=== PATIENT | male | born 2005 | race Caucasian/White ===

== ENCOUNTER → 2024-08-27 | Outpatient (CLI) | payer OTHER, SELFPAY ==
[2024-08-27 17:58] LABS: Erythrocyte Sedimentation Rate 5 mm/hr (0-20)
[2024-08-27 18:33] LABS: CRP 5.23 mg/L (0.0-3.0); Free T3 3.3 pg/mL (2.18-3.98)
[2024-08-27 18:36] LABS: Lipase 31 U/L (73-393)
[2024-09-02 11:07] LABS: ACCA 18 units (0-90); ALCA 64 units (0-60); AMCA 6 units (0-100); Cytoplasmic Ab (C-ANCA) <1:20 titer (Neg:<1:20); Endomysial Antibody IgA Negative (Negative); IgG, Quant 990 mg/dL (603-1613); Immunoglobulin A 174 mg/dL (90-386); Immunoglobulin G, Subclass 1 350 mg/dL (248-810); Immunoglobulin G, Subclass 2 271 mg/dL (130-555); Immunoglobulin G, Subclass 3 29 mg/dL (15-102); Immunoglobulin G, Subclass 4 173 mg/dL (2-96); Perinuclear Ab (P-ANCA) <1:20 titer (Neg:<1:20); gASCA 4 units (0-50); t-Transglutaminase IgA <2 U/mL (0-3)
[2024-09-02 15:07] LABS: Anti-Centromere B Ab <0.2 AI (0.0-0.9); Anti-Chromatin <0.2 AI (0.0-0.9); Anti-Jo <0.2 AI (0.0-0.9); Anti-Scleroderma-70 AB <0.2 AI (0.0-0.9); Anti-dsDNA Ab <1 IU/mL (0-9); Beef 0.85 kU/L (Class II); Chocolate 2.04 kU/L (Class III); Codfish 2.71 kU/L (Class III); Egg, Whole 1.06 kU/L (Class II); Milk (Cow) 0.25 kU/L (Class 0/I); Mussels 8.52 kU/L (Class IV); Pork 0.92 kU/L (Class II); RNP Ab <0.2 AI (0.0-0.9); SJOGREN'S Anti-SS-A test < 0.2 AI (0.0-0.9); SJOGREN'S Anti-SS-B test < 0.2 AI (0.0-0.9); Salmon 2.84 kU/L (Class III); Shrimp 2.79 kU/L (Class III); Smith Ab <0.2 AI (0.0-0.9); Tuna 1.07 kU/L (Class II)
== END | disposition home or self-care (01) ==
PROVIDERS: PCP Family Medicine; Referring Provider Student in an Organized Health Care Education/Training Program; Visit Provider Student in an Organized Health Care Education/Training Program
DX: K85.90 Acute pancreatitis without necrosis or infection, unspecified (principal)
CPT/HCPCS: 36415; 82784; 82787; 83516; 83690; 84439; 84443; 84481; 85652; 86003; 86005; 86036; 86037; 86140; 86225; 86235; 86255; 86671

== ENCOUNTER → 2024-08-29 | Outpatient (CLI) | payer OTHER, SELFPAY ==
[2024-09-01 14:07] LABS: Giardia Lamblia, Stool EIA Negative (Negative); Pancreatic Elastase, Fecal > 800 (>200)
[2024-09-03 07:07] LABS: Calprotectin, Stool 19 ug/g (0-120)
== END | disposition home or self-care (01) ==
LOC: LABSPEC 14:38
PROVIDERS: PCP Family Medicine; Referring Provider Student in an Organized Health Care Education/Training Program; Visit Provider Student in an Organized Health Care Education/Training Program
DX: K58.9 Irritable bowel syndrome, unspecified (principal); K85.90 Acute pancreatitis without necrosis or infection, unspecified
CPT/HCPCS: 82653; 83630; 83993; 87177; 87209; 87329; 87493; 87506